=== PATIENT | female | born 1950 | race Caucasian/White ===

== ENCOUNTER 2020-11-12 16:41 | Outpatient (REF) | payer OTHER, SELFPAY ==
--- NOTE | 2020-11-12 12:20 | PAPNONF_PTH ---
PATIENT: Maria Teresa Lake LOC: [facility] U#:[id number] AGE/SX: 70/F ROOM: RE11/12/[address]: Mahesh Diop MD : [id number] BED: DIS: 11/12/2020 SPEC #: [id number] RECD: 11/13/20 12:57 STATUS: SHAILA REQ #: [id number] SUSAN: 11/12/20 12:[address]: Mahesh Diop DEPT: [facility] Cytology RECD BY: Emani Knight ENTERED: 11/13/20 12:58 SP TYPE: CISCO BANEGAS DR: Laurence Lezama Tissues: 1 - BODY FLUID CYTO(NOT S/U/N/EM)[facility] Procedures: BODY FLUID CYTO(NOT SPU/UR/NIP/ENDOM)[facility] Comments: [id number]
== END 2020-11-12 16:42 | disposition home or self-care (01) ==
LOC: LBN 16:41
PROVIDERS: PCP Internal Medicine; Visit Provider Otolaryngology
DX: R22.1 Localized swelling, mass and lump, neck (principal); R89.6 Abnormal cytological findings in specimens from other organs, systems and tissues
CPT/HCPCS: 88104

== ENCOUNTER 2022-12-22 09:18 | Outpatient (CLI) | payer MEDICARE, SELFPAY ==
--- NOTE | 2022-12-22 09:00 | DI.RAD_ITS ---
Exam(s) XR SHOULDER LT COMPLETE 2+V EXAM: XR SHOULDER LT COMPLETE 2+V CLINICAL HISTORY: LEFT SHOULDER PAIN. TECHNIQUE: 2D digital imaging was performed. COMPARISON: No exams were available for comparison FINDINGS: Two views No evidence fracture or dislocation. No soft tissue calcifications. Mild diminution subacromial spa ce. There is no significant narrowing of the glenohumeral joint space. No osteophytes. Mild degene rative changes in the AC joint. IMPRESSION: Mild degenerative changes. DATA REPOSITORY: RADIATION DOSE DELIVERED:
== END 2022-12-22 09:19 | disposition home or self-care (01) ==
LOC: DIORS 09:18
PROVIDERS: PCP Internal Medicine; Referring Provider Internal Medicine; Visit Provider Student in an Organized Health Care Education/Training Program
DX: M25.512 Pain in left shoulder (principal); S46.212A Strain of muscle, fascia and tendon of other parts of biceps, left arm, initial encounter; X58.XXXA Exposure to other specified factors, initial encounter; M75.102 Unspecified rotator cuff tear or rupture of left shoulder, not specified as traumatic; M12.812 Other specific arthropathies, not elsewhere classified, left shoulder
CPT/HCPCS: 20610; 99203; 73030; J1030

== ENCOUNTER 2023-02-18 09:06 | Outpatient (CLI) | payer MEDICARE, SELFPAY ==
--- NOTE | 2023-02-18 08:38 | DI.RAD_ITS ---
Exam(s) XR HIP RT COMPLETE AP PELVIS EXAM: XR HIP RT COMPLETE AP PELVIS CLINICAL HISTORY: R THR planning. TECHNIQUE: 2D digital imaging was performed. Two views COMPARISON: CR XR HIP RT MIN 2V AND PELVIS from 02/25/2022 FINDINGS: BONES: No acute fracture is present. No bony destructive lesion is seen. JOINTS: No dislocation present. Severe degenerative changes of the right hip with obliteration of t he joint space and periarticular spurring. Left hip joint space is maintained. SI joints show mild degenerative changes. SOFT TISSUE: Normal. IMPRESSION: Degenerative changes of the right hip. DATA REPOSITORY: RADIATION DOSE DELIVERED:
== END 2023-02-18 09:07 | disposition home or self-care (01) ==
LOC: DIORS 09:06
PROVIDERS: PCP Internal Medicine; Referring Provider Internal Medicine; Visit Provider Student in an Organized Health Care Education/Training Program
DX: M16.11 Unilateral primary osteoarthritis, right hip (principal); M75.102 Unspecified rotator cuff tear or rupture of left shoulder, not specified as traumatic; S46.212A Strain of muscle, fascia and tendon of other parts of biceps, left arm, initial encounter; X58.XXXA Exposure to other specified factors, initial encounter
CPT/HCPCS: 99214; 73502

== ENCOUNTER 2023-02-18 18:35 | Outpatient (CLI) | payer MEDICARE, SELFPAY ==
[2023-02-18 10:19] LABS: HCT 43.2 % (36.0-46.0); HGB 13.8 g/dL (11.2-15.7); MCH 27.3 pg (27.0-33.0); MCHC 31.9 % (32.0-36.0); MCV 85 fL (80-95); Platelet Count 232 10^3/uL (130-400); RBC 5.06 10^6/uL (3.93-5.22); RDW 14.6 % (11.7-14.6); RDW-SD 46.2 fL; WBC 8.74 10^3/uL (4.4-10.8)
[2023-02-18 10:38] LABS: Anion Gap 10.1 mmol/L (3-11); BUN 8 mg/dL (7-18); CO2 27.9 mmol/L (21.0-32.0); CREATININE 0.6 mg/dL (0.55-1.02); Calcium 9.9 mg/dL (8.5-10.1); Chloride 102 mmol/L (98-107); Glucose 101 mg/dL (74-106); Potassium 3.7 mmol/L (3.5-5.1); Sodium 140 mmol/L (136-145)
== END 2023-02-18 18:36 | disposition home or self-care (01) ==
LOC: LBO 18:36
PROVIDERS: PCP Internal Medicine; Visit Provider Student in an Organized Health Care Education/Training Program
DX: Z01.818 Encounter for other preprocedural examination
CPT/HCPCS: 36415; 80048; 85027

== ENCOUNTER → 2023-02-23 10:12 | Outpatient (BNVA) | payer MEDICARE, SELFPAY | PROVIDERS: PCP Internal Medicine; Referring Provider Internal Medicine; Visit Provider Student in an Organized Health Care Education/Training Program | DX: M75.102 Unspecified rotator cuff tear or rupture of left shoulder, not specified as traumatic (principal); M12.812 Other specific arthropathies, not elsewhere classified, left shoulder; S46.212D Strain of muscle, fascia and tendon of other parts of biceps, left arm, subsequent encounter; X58.XXXD Exposure to other specified factors, subsequent encounter | CPT/HCPCS: 99214 ==

== ENCOUNTER → 2023-03-02 02:30 | Outpatient (CLI) | payer MEDICARE, SELFPAY ==
--- NOTE | 2023-03-02 08:30 | DI.CT_ITS ---
Exam(s) CT UPPER EXTREMITY LT WO EXAM: CT UPPER EXTREMITY LT WO CLINICAL HISTORY: SURGICAL PLANNING M75.102 ROTATOR CUFF TEAR M12.812 S46.212A STRAIN. TECHNIQUE: Imaging Protocol: Axial computed tomography images with coronal and sagittal reformatted images were created and reviewed. COMPARISON: CR XR SHOULDER LT COMPLETE 2+V from 12/22/2022 FINDINGS: Bones: No evidence of fracture. Degenerative spurring and subchondral cysts in the humeral head. Ch anges in the spine. Joints: mild spurring at the AC joint. Spurring at the tip of the acromion. Humeral head is superi josue positioned. Findings consistent with chronic rotator cuff tear. Soft Tissues: Moderate atrophy of the supraspinatus muscle. The visualized portions of the lungs are clear. IMPRESSION: Chronic supraspinatus tear with moderate muscle atrophy. Degenerative changes at the AC joint and an d undersurface of acromion. RADIATION DOSE DELIVERED: Total DLP Total DLP DATA REPOSITORY: All CT scans at this facility are submitted to the National Radiology Data Registry (NRDR) Dose Index Registry (DIR) with the [employer] (ACR). RADIATION OPTIMIZATION: All CT scans at this facility use at least one of these dose optimization te chniques: automated exposure control; mA and/or kV adjustment per patient size (includes targeted exa ms where dose is matched to clinical indication); or iterative reconstruction.
== END ==
PROVIDERS: PCP Internal Medicine; Visit Provider Student in an Organized Health Care Education/Training Program
DX: M12.812 Other specific arthropathies, not elsewhere classified, left shoulder (principal); M75.122 Complete rotator cuff tear or rupture of left shoulder, not specified as traumatic; S46.212D Strain of muscle, fascia and tendon of other parts of biceps, left arm, subsequent encounter; X58.XXXD Exposure to other specified factors, subsequent encounter
CPT/HCPCS: 73200

== ENCOUNTER 2023-03-08 05:37 | Day surgery (SDC) | payer MEDICARE, SELFPAY ==
[2023-03-08] VITALS (11 sets, daily range): BP systolic 94–182; BP diastolic 46–71; PULSE 57–69; RESP 13–20; TEMP 36.1–36.8; O2SAT 94–98; BMI 36.3
[2023-03-08] MEDS: Lactated Ringers 1,000 ML 80 ML IV (06:55)
--- NOTE | 2023-03-08 06:56 | W.ANESPRE ---
General Info Date of Service Date Performed: 03/08/23 Height: 5 ft 1.5 in Weight: 88.7 kg Body Mass Index (BMI): 36.3 Surgical Procedure: Operation Date: 03/08/23 07:50 Proposed Procedure Side Surgeon p Hip Total Hip Anterior, Corail Low Right Jensen Orellana MD Meds Allergies and Home Medications Allergies Allergy/AdvReac Type Severity Reaction Status Date / Time Influenza Virus Vaccines Allergy Verified 03/07/23 13:36 rofecoxib [From Vioxx] Allergy Verified 03/07/23 13:36 yellow dye Allergy Verified 03/07/23 13:37 Home Medication Medication Instructions Recorded amlodipine 5 mg tablet 5 mg PO DAILY 11/05/20 omeprazole 40 mg capsule,delayed 40 mg PO DAILY 02/18/23 release acetaminophen 500 mg tablet 1,000 mg (2 x 500 mg) PO Q8H PRN 03/08/23 pain #90 tabs aspirin 81 mg tablet,delayed 81 mg PO BID 30 days #60 tabs 03/08/23 release celecoxib 200 mg capsule (Celebrex) 200 mg PO BID PRN #60 caps 03/08/23 dexamethasone 4 mg tablet 4 mg PO DAILY #2 tabs 03/08/23 docusate sodium 100 mg capsule 100 mg PO BID #30 caps 03/08/23 (Colace) oxycodone 5 mg tablet 5 mg PO Q6H PRN #12 tabs 03/08/23 Current Visit Medications: Current Medications Generic Name Dose Route Start Last Admin Trade Name Freq PRN Reason Stop Dose Admin Acetaminophen 1,000 mg 03/08/23 06:00 Acetaminophen 500 Mg Tab PO 04/07/23 05:59 PREOP LETA Tranexamic Acid 1,000 mg/ 60 mls @ 360 mls/hr 03/08/23 06:00 Sodium Chloride IV 04/07/23 05:59 PREOP LETA Ringer's Solution 1,000 mls @ 80 mls/hr 03/08/23 06:00 IV 03/08/23 23:59 INFUSION LETA Cefazolin Sodium/Dextrose 2 gm in 50 mls @ 100 mls/hr 03/08/23 06:00 Ancef Duplex IVPB 03/08/23 23:59 PREOP LETA IV Miscellaneous Supplies 1 each 03/08/23 06:00 Iv Access IV 03/08/23 23:59 DIRECTED LETA Sodium Chloride 0 ml 03/08/23 06:00 Normal Saline Flush 10 Ml Syr IV 03/08/23 23:59 PRN PRN Sodium Chloride 0 ml 03/08/23 06:00 Normal Saline 10 Ml Vial IJ 03/08/23 23:59 DIRECTED PRN Sterile Water 0 ml 03/08/23 06:00 Water,Injection,Sterile 10 Ml Vial IJ 03/08/23 23:59 DIRECTED PRN PFSH Active Problems Active Problems: Problem Status Onset Code Osteoarthritis of right hip M16.11 Rupture of left proximal biceps tendon S46.212A Left rotator cuff tear arthropathy M75.102, M12.812 Mass of left side of neck R22.1 Hx of tonsillectomy Z90.89 Hx of cataract surgery Z98.49 Hx of cholecystectomy Z90.49 Hx of colonoscopy Z98.890 Elevated liver enzymes R74.8 Nonalcoholic steatohepatitis K75.81 Greater trochanteric pain syndrome M25.559 Antinuclear factor positive R76.8 Prediabetes R73.03 Persistent cough R05 Chronic low back pain M54.5, G89.29 Degeneration of cervical intervertebral disc M50.30 Inflammatory spondylopathy M46.90 Arthropathy M12.9 Genuine stress incontinence, female N39.3 Hypertensive disorder I10 Benign paroxysmal positional vertigo H81.10 Acidosis E87.2 Hyperlipidemia E78.5 Localized swelling, mass and lump, neck R22.1 Medical History Medical History (Updated 03/07/23 @ 13:33 by Jim Hwang) Spinal stenosis Tobacco Smoking/Tobacco Use Status: Former Tobacco Use Alcohol Alcohol Intake: current Alcohol intake frequency: holidays/special occasions only Substance Use Substance use: Never Substance use type: does not use Vital Signs and Lab Results Vital Signs Most Recent Vital Signs in EMR: Most Recent Vital Signs Temp Pulse Resp BP Pulse Ox 36.8 C 62 16 182/66 H 98 03/08/23 06:12 03/08/23 06:12 03/08/23 06:12 03/08/23 06:12 03/08/23 06:12 Lab Results Blood Type / Crossmatch: No Data to Display Complete Blood Count: White Blood Count 8.74 10^3/uL (4.4-10.8) 02/18/23 09:55 Red Blood Count 5.06 10^6/uL (3.93-5.22) 02/18/23 09:55 Hemoglobin 13.8 g/dL (11.2-15.7) 02/18/23 09:55 Hematocrit 43.2 % (36.0-46.0) 02/18/23 09:55 Platelet Count 232 10^3/uL (130-400) 02/18/23 09:55 Complete Metabolic Panel: Sodium 140 mmol/L (136-145) 02/18/23 09:55 Potassium 3.7 mmol/L (3.5-5.1) 02/18/23 09:55 Chloride 102 mmol/L (98-107) 02/18/23 09:55 Carbon Dioxide 27.9 mmol/L (21.0-32.0) 02/18/23 09:55 BUN 8 mg/dL (7-18) 02/18/23 09:55 Creatinine 0.6 mg/dL (0.55-1.02) 02/18/23 09:55 Est GFR (CKD-EPI 2020) 95.90 (mL/min/1.73m2) 02/18/23 09:55 Calcium 9.9 mg/dL (8.5-10.1) 02/18/23 09:55 Glucose 101 mg/dL (74-106) 02/18/23 09:55 Liver Function Panel: No Data to Display Coagulation Panel: No Data to Display Cardiac Panel: No Data to Display Arterial Blood Gas: No Data to Display Venous Blood Gas: No Data to Display Pancreas Panel: No Data to Display Thyroid Panel: No Data to Display Infectious Disease: No Data to Display Blood Cultures: No Data to Display Toxicology Panel: No Data to Display Imaging and Studies Imaging and Studies Study information below may be from another EMR and interpreted by another provider. Please see original notes in EMR for more complete details. Echocardiogram Summary: 05/25/18 Echo at [facility], trivial mitral regurgitation, otherwise normal per Jean Pierre BELL review of records. Anesthesia Assessment and Plan Anesthesia History Personal History: No History of Anesthesia Complications Family History: No Family History of Anesthesia Complications and Family History Unknown Exercise Tolerance Exercise Tolerance: Metabolic Equivalents<4 Pertinent Negatives Pertinent Negatives: No Symptoms of GERD (omeprazole effective, took this am), No Major Cardiovascular Symptoms or Complaints, No Major Pulmonary Symptoms or Complaints and No History of CVA/TIA Cardiac & Pulmonary Exam Cardiac Exam: Normal S1/S2 Heart Sounds and Heart Murmur Present Pulmonary Exam: Clear Bilateral Breath Sounds Implantable Cardiac Device Does patient have a Pacemaker or an ICD?: No Airway Exam Known Difficult Airway: No Mallampati Class: 4 Mouth Opening: Normal (> 3cm) Thyromental Distance: Less than 3 cm Neck Range of Motion: Full ROM Neck Circumference: Normal Teeth Condition: Normal Dentition (Prominent incisors) ASA Classification ASA Score: ASA 3 Emergency Case?: No NPO Status NPO Status: NPO Clears >2 hours, Solids >8 hours Anesthesia Plan Resuscitation Status: Full Code Anesthesia Technique: Spinal Anesthesia Airway Planned: Natural Airway Monitors Used: Standard Monitors Preoperative Comments:: GA backup
--- NOTE | 2023-03-08 07:00 | DI.RAD_ITS ---
Exam(s) XR HIP RT IN OR EXAM: XR HIP RT IN OR CLINICAL HISTORY: right hip osteoarthritis. TECHNIQUE: 2D digital imaging was performed. COMPARISON: No exams were available for comparison FINDINGS: Possibly provided during hip arthroplasty. See procedure report for details. Total fluoroscopy time 36 seconds IMPRESSION: Radiation exposure index/cumulative dose: aleena Sneed= 4.5610 mGy DATA REPOSITORY: RADIATION DOSE DELIVERED:
[2023-03-08] MEDS: Acetaminophen 500 MG TAB 1000 MG PO (07:04)
[2023-03-08] MEDS: ceFAZolin 2 GM/50 ML BAG IVPB (07:28)
--- NOTE | 2023-03-08 07:32 | W.PM.DS.N ---
Date of service: 03/08/23 Time of Service: 07:37 DS: Diagnosis Discharge Diagnosis (1) Osteoarthritis of right hip: Status: Resolved Discharge Plan Disposition Patient Disposition: Home Condition: Good Discharge Details Reason For Visit: Right hip DJD Attending Provider: Jensen Orellana Primary Care Provider: Laurence Lezama Home Meds and New Rx's Prescriptions: New acetaminophen 500 mg tablet 1,000 mg PO Q8H PRN Qty: 90 0RF Rx Instructions: Take two tablets up to every 8 hours as needed for pain aspirin 81 mg tablet,delayed release (DR/EC) 81 mg PO BID 30 Days Qty: 60 0RF celecoxib [Celebrex] 200 mg capsule 200 mg PO BID PRNQty: 60 0RF Rx Instructions: Take one tablet twice daily for pain and inflammation docusate sodium [Colace] 100 mg capsule 100 mg PO BID Qty: 30 0RF dexamethasone 4 mg tablet 4 mg PO DAILY Qty: 2 0RF Rx Instructions: Take one tablet once daily for two days oxycodone 5 mg tablet 5 mg PO Q6H PRNQty: 12 0RF Rx Instructions: Take one tablet up to every 6 hours as needed for severe postoperative pain Continued amlodipine 5 mg tablet 5 mg PO DAILY omeprazole 40 mg capsule,delayed release(DR/EC) 40 mg PO DAILY Discontinued ibuprofen 600 mg tablet 600 mg PO TID PRN tramadol 50 mg tablet 50 mg PO .5 times per day PRN Discharge Instructions Additional Instructions: Total Hip Discharge Instructions Activity: The most important activity is to walk. You should try to take short walks a few times a day. You have no restrictions on movement or positioning, but do not try to force what you do. You will find some stiffness and weakness with hip flexion (lifting your knee). Do not try to strengthen this too early, continue to practice walking and stairs and this will come. - Outpatient physical therapy can be helpful to help return you to a normal gait and improve your flexibility and strength. This can start around 2 weeks. For some patients, it?s not necessary. Usually this is determined at the time of discharge or at the first post-operative visit. - You should wear the ANASTACIO hose on both legs for 2 weeks. Dressing: Keep the surgical dressing in place for at least one week. After the first week it may be removed and replace with light gauze and tape or nothing. It may get wet after 3 days but avoid soaking the dressing. If it gets wet, just lightly pat dry. It is important to always keep some gauze between skin folds, especially when you are sitting. Spend some time with the wound exposed when you are lying flat as the incision does wrinkle onto itself. Medications: - You should take Tylenol and an anti-inflammatory Celebrex as your primary pain control medications. If the Celebrex is too expensive or not covered, please call the office for another alternative (Advil/Ibuprofen or Naproxen/Aleve). - You have been prescribed a stronger pain medication Oxycodone for breakthrough pain, take as needed as prescribed. - You take a stomach acid reduction agent Omeprazole to help reduce stomach acid and reflux. - You have also been prescribed Decadron to help with post-operative nausea and pain. You will take this for two days starting tomorrow. - You will be taking Aspirin 81mg twice a day for DVT prevention unless instructed otherwise. - If you have constipation you should take Colace (which has been prescribed) or Miralax (which is available [id number]). It takes most people 3-4 days to have a bowel movement. Follow-up: 2 weeks March 21, 2024 @ 1045 am. If you have any acute concerns or questions, please do not hesitate to contact the office at [phone]. You may contact Dr. Orellana with any questions after hours through the hospital at [phone] or on his cell phone at [phone]. Stand Alone Forms: Anesthesia Discharge InstZehra, Tracy Torres ([facility]) Referrals: Jensen Orellana MD [ [facility] STAFF PHYSICIAN] - Equipment/Supplies: Walker Activity:: Activity as Tolerated Remove Dressings/Wound Care:: Do Not Remove Shower/Bathe:: 72 hours and Cover Diet:: As Tolerated Discharge Orders Discharge Orders: Discharge Order (Routine); Ordered 03/08/23 Ordered By: Sydni Desai Discharge Data Discharge Date/Time-TO BE ENTERED AT DEPARTURE: 03/08/23 13:00 DS: Summary Time Spent with Patient providing and/or coordinating discharge services: Less than 30 minutes Status at Discharge Functional status at discharge: uses cane/walker Overall status at discharge: patient is progressing back to baseline Mental Status: mental status grossly normal Speech and Movement: speech and movement normal Mood: congruent mood Affect: normal affect Exam Psych Mental Status: mental status grossly normal Speech and Movement: speech and movement normal Mood: congruent mood Affect: normal affect DS: Data Vitals/I&O Vitals and I&O: Vital Signs Temperature 98.2 F 03/08/23 06:12 Pulse 62 03/08/23 06:12 Pulse Rhythm Regular 03/08/23 06:12 Respiratory Rate 16 03/08/23 06:12 Respiratory Depth Normal 03/08/23 06:12 Blood Pressure 182/66 H 03/08/23 06:12 Pulse Oximetry 98 03/08/23 06:12 Oxygen Delivery Method Room Air 03/08/23 06:12 Oxygen Flow Rate 0 03/08/23 06:12 Pain Level 5 03/08/23 06:12 Intake & Output 03/07/23 03/07/23 03/08/23 11:59 23:59 11:59 Weight 195 lb 15.996 oz 195 lb 8.8 oz PFSH All Active Problems (Updated 03/08/23 @ 14:29 by José Miguel Martines RN) History of total right hip replacement (Acute 03/08/23) Rupture of left proximal biceps tendon (Acute) Left rotator cuff tear arthropathy (Acute) Mass of left side of neck (Acute) Hx of tonsillectomy (Chronic) Hx of cataract surgery (Chronic) Hx of cholecystectomy (Chronic) Hx of colonoscopy (Chronic) Elevated liver enzymes (Acute) Nonalcoholic steatohepatitis (Acute) Greater trochanteric pain syndrome (Acute) Antinuclear factor positive (Acute) Prediabetes (Acute) Persistent cough (Acute) Chronic low back pain (Acute) Degeneration of cervical intervertebral disc (Acute) Inflammatory spondylopathy (Acute) Arthropathy (Acute) Genuine stress incontinence, female (Acute) Hypertensive disorder (Chronic) Benign paroxysmal positional vertigo (Acute) Acidosis (Acute) Hyperlipidemia (Acute) Localized swelling, mass and lump, neck (Acute) Medical History (Updated 03/08/23 @ 14:29 by José Miguel Martines RN) Spinal stenosis Family History Brother Kidney disease Father Stroke Mother Heart disease Social History Smoking/Tobacco Use Status: Former Tobacco Use Quit Date: 04/11/82 Pack-years: 19 Smoking risk assessment performed?: Yes Alcohol Intake: current Alcohol Intake frequency: holidays/special occasions only Drug use: Never Substance use type: does not use Housing: house Education Level: high school Pets and animals: Yes Current gender identity: female Do you feel safe at home: Yes Do you feel safe in your relationship?: Yes Time Spent with Patient Time Spent with Patient: <45 minutes Time was spent: obtaining and/or reviewing separately otained hiistory, counseling the patient and care coordination
[2023-03-08] MEDS: HYDROmorphone 2 MG/ML SYR IVP ×3 (09:23→10:10)
[2023-03-08] MEDS: LORazepam 2 MG/ML VIAL 0.5 MG IVP (09:28)
--- NOTE | 2023-03-08 10:29 | W.PM.OP ---
Date of service: 03/08/23 Time of Service: 07:40 Operative Note Operative Note DATE OF PROCEDURE: 03/08/23 PRE-OP DIAGNOSIS: Right Hip Osteoarthritis POST-OP DIAGNOSIS: same PROCEDURE: Right Anterior Total Hip Arthroplasty with Intraoperative Navigation SURGEON: Jensen Orellana SPECIAL EDUCATION DIRECTOR: Sydni Desai ANESTHESIA TYPE: Spinal Refer to Anesthesia Record ESTIMATED BLOOD LOSS: 200 PATHOLOGY: none sent TOURNIQUET TIME: 0 COMPLICATIONS: None Patient was transported to: PACU Patient's condition: stable Implants: 1. Depuy [place] Acetabular Component, 52mm 2. Depuy Acetabular Liner, 57x82ql 3. Depuy Corail Short Neck Collared Femoral Stem, Size 11 4. Depuy Altrx Ceramic Femoral Head, Size 36+5mm Indications: I have seen Maria Teresa in clinic for symptoms of hip arthritis, confirmed with radiographic findings. She has exhausted nonoperative methods and was having significant limitations in daily function and desired better function and less pain. I discussed the technical details of a hip replacement. I explained the risks of the procedure to include, but not limited to, bleeding, infection, pain, stiffness, fracture, damage to nerves and vessels, damage to muscles and tendons, loosening, instability, leg length inequality, need for repeat procedure, blood clot and cardiopulmonary demise. Despite these risks, Maria Teresa elected to proceed. Findings: There was significant signs of arthritis throughout the hip. Procedure Description: Maria Teresa was greeted in the preoperative holding area where the correct side was identified and marked. The consent was reviewed with the patient and signed. The history and physical was updated. All questions were answered. She was taken back to the operating room. A spinal anesthestic was then administered. The feet were wrapped with cast padding and Coban and then placed into the boot liners and then into the boots. Care was taken to protect the skin and make sure the heels were fully down and the boots were stable. The patient was then positioned onto the HANA table. Both legs were held in a neutral position. SCDs were applied. The patient was then slid down onto a peroneal post. Prophylactic antibiotics in the form of Cefazolin were administered. 1g of Tranxemic Acid was given intravenously within 30 minutes of incision. The right leg was then prepped with Chloraprep and draped in a standard fashion. A second prep with Chloraprep was performed prior to placement of a shower-curtain type drape with Iodine impregnated skin protection. A timeout to confirm correct identity, side and site, procedure, allergies, anesthesia, and medical concerns was performed. An obliquely oriented incision was made starting lateral to the ASIS and running distal over the Tensor Fascia Carolyne (TFL) muscle belly toward the fibular head, approximately 10cm. The skin and soft tissue was dissected sharply, through Hernando?s fascia, and to the fascia of the TFL. With the fascia and superior border of the IT band identified, the fascia was incised with a new knife just above any perforators from the IT band. The TFL muscle belly was bluntly dissected away from the fascia and moved laterally. The fat between TFL and rectus was identified to ensure the dissection was not within the TFL. Blunt dissection created space between abductors and the capsule and retractor was placed over the lateral femoral neck. The fibers of the rectus femoris tendon were identified and these were freed from the anterior capsule. A second cobra retractor was placed around the medial femoral neck. The TFL was further retracted laterally to show the deep fascia. Careful dissection through this layer identified three main crossing vessels of the lateral femoral circumflex. These were cauterized in multiple locations and then cut without any noticeable bleeding. The TFL was further released bluntly from the deep fascia to expose anterior hip capsule and fat The Pedrito orthopaedic retractor was then placed beneath the TFL and against sartorius and medial soft tissues to protect and retract the soft tissues. A T-capsulotomy was then performed starting at the superior lateral acetabulum and moving distally to the intertrochanteric ridge. These capsular flaps were tagged with a No. 1 Ethibond and elevated from within. The capsular flaps were released to the shoulder of the lateral neck and to the lesser trochanter to give excellent visualization of the proximal femur. A neck osteotomy was performed using an oscillating saw based on preoperative templates. This cut started in the shoulder and of the lateral neck and exited medially. The saw was at all times directed medially to avoid injury to the greater trochanter. Gross traction was applied to the leg and the osteotomy opened. The femoral head was removed with a corkscrew, making sure to protect the TFL on its exit. Traction was released after head removal. This was measured on the back table to determine the starting reamer size. Portions of the rectus obscuring visualization were minimally elevated off the superior acetabulum. An anterior retractor was placed over the anterior wall between capsule and labrum and attached to the Gripper retraction system. The femur was rotated to 90 degrees and medial capsule was fully released until the lesser trochanter was palpable and visible; the femur was returned to 30 degrees. A posterior retractor was placed similarly between capsule and labrum. This provided excellent visualization. The contents of the cotyloid fossa were removed with electrocautery and the labrum was removed with a knife. There was a notable floor osteophyte. There was significant chondromalacia of the superior acetabulum. Acetabular reaming began with a 46mm reamer. This first reaming was directed anterior to posterior and medial to get down to the true floor. This was inspected and reamed until the true floor was reached. The anterior retractor was then released and entry and exit was provided by traction on the capsular flaps. I then reamed sequentially up to a 52mm reamer where good fit was obtained. The larger reamers were oriented based on anatomical reference of the anterior and lateral burton to ensure proper abduction and anteversion. Positioning and size was confirmed with the fluoroscopy. A 52mm Depuy [place] acetabular component was selected. The acetabulum was reamed around the periphery with the selected acetabular size to prevent a rim fit. The deep tissues were irrigated. The acetabular component was then impacted in a position of about 40-45 degrees of abduction and 15-20 degrees of anteversion, using the patient?s anatomy as the ultimate landmark. Fluoroscopy was used to confirm this. There was excellent director credit risk of the acetabular component and the inserting handle was removed. A primary acetabular screw was placed into the ilium by drilling through one of the holes in the acetabular component. This was measured and an approrpriately sized screw was placed with excellent purchase. It was checked not to be proud. The acetabular liner, Depuy [id number] polyethylene liner, was inserted and lined up with the tines of the acetabular component. There was no soft tissue interposition. The liner was then impacted into position and confirmed to be well-seated. A portion of the lauren-articular cocktail was then injected around the acetabulum into the capsule and periosteum. This cocktail consisted of 123mg of Ropivacaine, 0.25mg of Epinephrine, 0.04mg of Clonidine, and 15mg of Ketorolac, diluted to 50cc. The leg was rotated to 120 degrees. Any remaining medial capsule was released until the lesser trochanter was easily palpable. A retractor was placed medially. The lateral capsule was further released into the shoulder to allow access to the greater trochanter. A Quiñones retractor was placed over the greater trochanter which allowed the trochanter to flip in front of the capsule for excellent exposure. The leg was brought down into maximal extension and 20 degrees of adduction while ensuring there was no impingement on the acetabulum. Any remnant capsule within the trochanter was released. Piriformis and obturator externis were identified and protected. There was excellent access to the proximal femur. The lateral neck remnant was removed with a rongeur. A blunt canal probe was used to identify the canal and trajectory for later broaching. A box osteotome initiated the broach course. A small curved rasp and a curved curette were used to work laterally. Broaching then began with a size 8 Corail broach. This was inserted manually around the trochanter and into the canal before mallet blows. The broach was seated to a few millimeters below the cut level based on the neck cut and the preoperative template. Sequential broaching was continued with the Hangar Sevense pneumatic broaching device until a tight fit was obtained with good rotational control of the femur. A trial short neck was inserted along with a +5 trial head. The leg was brought out of extension and adduction and then reduced with traction and internal rotation. The leg was stable anteriorly in a position of 30 degrees of extension and 90 degrees of external rotation. Fluoroscopy was used to ensure there was no fracture and the stem was seated well. Leg lengths were checked with an AP pelvis and pelvic reference points. AVA.ai navigation system was used to confirm appropriate positioning and leg length and offset. Once content with the desired offset and leg lengths, the leg was brought back into extension, external rotation and adduction. The periosteum and surrounding tissue was injected with remaining portion of the lauren-articular cocktail. The proximal femur was irrigated as well as the deep tissues. The Depuy Corail short neck collared stem, size 11, was then manually inserted into the proximal femur making sure to control rotation. It was then malleted into position with light blows, giving breaks to allow bone expansion and decrease risk of fracture. The selected Depuy Altrx Ceramic Head, size 36+5mm, was then placed onto the clean and dry trunnion and secured with impaction onto the tapered fit. The leg was brought back out of extension and adduction and reduced with traction and internal rotation. Stability was confirmed with no shuck at 90 degrees of external rotation and 30 degrees of extension. No impingement through range of motion arc. Final x-ray images were obtained with fluoroscopy to confirm adequate positioning and no intraoperative fracture. The deep tissues were thoroughly irrigated with Surgiphor, betadine solution. This was allowed to sit in the wound for 3 minutes before being thoroughly irrigated out with normal saline. The capsule was then reapproximated with the previously placed Ethibond sutures. The TFL fascia was finally closed with a No. 2 Stratafix, barbed suture. Deep tissues were then reapproximated with 0 Vicryl and a running 2-0 Vicryl. The skin was closed with a running 4-0 Monocryl in a subcuticular fashion. This was reinforced with skin glue. A Mepilex silver dressing was applied. At the end of the case, all counts were correct. Maria Teresa was transferred to the hospital bed without difficulty and suffering no apparent complication. She has a good prognosis. Physical therapy will start today and without restrictions, weight-bearing as tolerated. Aspirin 81mg BID will be used for DVT prophylaxis.
[2023-03-08] MEDS: oxyCODONE 5 MG TAB PO (11:18)
--- NOTE | 2023-03-08 11:40 | IN_ITS ---
PT Notes Visit Reasons: Right hip DJD Physical Therapy Day Surgery Initial Evaluation Date: 03/08/2023 Referring Doctor: Jensen Orellana MD PT Orders: PT CONSULT: S/P ortho Surgery Precautions: WBAT on the L LE with AD. Patient Profile/Admitting Diagnosis: Maria Teresa is a 72-year-old female with degenerative joint disease of the left hip and is status post left total hip arthroplasty on postoperative day 0. PMHX: All Active Problems (Updated 02/18/23 @ 08:24 by RAY Santos) Osteoarthritis of right hip (Acute) Rupture of left proximal biceps tendon (Acute) Left rotator cuff tear arthropathy (Acute) Mass of left side of neck (Acute) Hx of tonsillectomy (Chronic) Hx of cataract surgery (Chronic) Hx of cholecystectomy (Chronic) Hx of colonoscopy (Chronic) Elevated liver enzymes (Acute) Nonalcoholic steatohepatitis (Acute) Greater trochanteric pain syndrome (Acute) Antinuclear factor positive (Acute) Prediabetes (Acute) Persistent cough (Acute) Chronic low back pain (Acute) Degeneration of cervical intervertebral disc (Acute) Inflammatory spondylopathy (Acute) Arthropathy (Acute) Genuine stress incontinence, female (Acute) Hypertensive disorder (Chronic) Benign paroxysmal positional vertigo (Acute) Acidosis (Acute) Hyperlipidemia (Acute) Localized swelling, mass and lump, neck (Acute) Active Problem List Mass of left side of neck (Acute) Hx of tonsillectomy (Chronic) Hx of cataract surgery (Chronic) Hx of cholecystectomy (Chronic) Hx of colonoscopy (Chronic) Elevated liver enzymes (Acute) Nonalcoholic steatohepatitis (Acute) Greater trochanteric pain syndrome (Acute) Antinuclear factor positive (Acute) Prediabetes (Acute) Persistent cough (Acute) Chronic low back pain (Acute) Degeneration of cervical intervertebral disc (Acute) Inflammatory spondylopathy (Acute) Arthropathy (Acute) Genuine stress incontinence, female (Acute) Hypertensive disorder (Chronic) Benign paroxysmal positional vertigo (Acute) Acidosis (Acute) Hyperlipidemia (Acute) Localized swelling, mass and lump, neck (Acute) Social History/Home Situation: Lives with in a private home with a half step to get in. Independent with all aspects of ADLs prior to surgery. Equipment Owned/DME: [facility] Subjective: Reports 3-4/10 pain in the left hip at rest and with movement. Needed to use bathroom right away due to temporary urinary incontinence. Objective: General Observation: Resting in bed. Mepilex Ag over surgical incision. TEDS to be legs. High BMI. Mental Status: Alert and oriented x 4 Pain: As above ROM Right Lower Extremity: Hip flexion WFL. Hip abduction WFL. Knee flexion WFL. Ankle dorsiflexion WFL. Ankle plantarflexion WFL. Left Lower Extremity: Hip flexion WFL. Hip abduction WFL. Knee flexion WFL. Ankle dorsiflexion WFL. Ankle plantarflexion WFL. Strength: Right Lower Extremity: Hip flexors 5/5. Hip abductors 5/5. Knee flexors 5/5. Knee extensors 5/5. Ankle dorsiflexors 5/5. Ankle plantarflexors 5/5. Left Lower Extremity:Hip flexors 4-/5. Hip abductors 4-/5. Knee flexors 4/5. Knee extensors 4-/5. Ankle dorsiflexors 5/5. Ankle plantarflexors 5/5. Sensation: Intact as to pain and light pressure in BLE Bed Mobility/Transfers: Minimal verbal cueing provided for safe and correct technique for movement sequence and AD use Supine to sit standby assist Sit to stand contact-guard assist with FWW Stand to sit standby assist Bed to chair standby assist Gait: Facilitated safe and correct performance of level surface ambulation covering a distance of 150 feet using front wheeled walker with standby assist requiring only minimal verbal cueing for walker management, correct and safe gait pattern, and posture. Balance: Static Sitting: Normal Dynamic Sitting: Normal Static Standing: Fair Dynamic Standing: Fair Special Tests: Mobility Limitations Standardized Measure [facility] AM-PAC 6 clicks Basic Mobility Inpatient Short Form: Raw Score: 23 CMS Score: 11% deficit Informed Consent/Education: Patient instructed in purpose of PT consult. Packet containing JEREMIAS exercise protocol has been given to patient. Education and training on initial set of exercises that can be done at home have been completed with patient. Trained patient with correct performance of exercises below to maximize motor control, joint flexibility, soft tissue extensibility of the L hip musculature to facilitate return to independent functional mobility performance. Access Code: [email or web address] URL: [email or web address] Date: 03/08/2023 Prepared by: Ju Tinoco Exercises - Gluteal Sets - 1 x daily - 7 x weekly - 1 sets - 10 reps - 5 hold - Supine Heel Slide - 1 x daily - 7 x weekly - 1 sets - 10 reps - 5 hold - Supine Ankle Pumps - 1 x daily - 7 x weekly - 1 sets - 10 reps - 5 hold - Seated March - 1 x daily - 7 x weekly - 1 sets - 10 reps - 5 hold - Seated Long Arc Quad - 1 x daily - 7 x weekly - 1 sets - 10 reps - 5 hold Assessment: Patient requires the use of a front wheeled walker to maximize independence and reduce fall risk. Patient presents with clinical signs and symptoms consistent with current/admitting diagnoses that have resulted to mobility limitations, gait instability, generalized weakness, and impairment of motor control as demonstrated by the following impairment level findings: 1. Decreased strength to left hip major muscle groups 2. Impaired standing balance Impairments are contributing to the following functional limitations: 1. Inability to safely ambulate without assistive device 2. Increase completion time for mobility ADL performance 3. Increased fall risk Patient is assessed as a 68362 moderate complexity based on the following: History: 72-year-old female with impairment level findings, functional limitations, and past medical history as indicated above Examination: Demonstrable impairment in strength, balance, and mobility level with underlying impairments and functional limitations as documented above Presentation: Evolving Decision Makin moderate complexity Goals: N/A. PT evaluation and 1-2 treatment sessions only for functional mobility training using recommended AD and for HEP instruction. Plan of Care/Treatment Plan: N/A. PT evaluation and 1-2 treatment session only for functional mobility training using recommended AD and for HEP instruction. DISCHARGE RECOMMENDATIONS: Home when medically cleared by orthopedic surgeon. Recommend outpatient PT services in order to optimize functional mobility outcomes and facilitate return to independent community ambulation without an assistive device. TREATMENT CODE/TIME: 26768 x 20 minutes for 1 unit, 37162 x 17 minutes for 1 unit beginning at 11:40 AM. Thank you for the opportunity to participate in the care of this patient. Ju Tinoco PT, DPT, CLT [facility] [place], [place]
--- NOTE | 2023-03-08 13:06 | W.ANESPOSTOP ---
Postoperative Evaluation Date, Time and Location Date Performed: 03/08/23 Time Performed: 12:39 Patient Location: Day Surgery Unit Vital Signs Most Recent Imported Vital Signs: Most Recent Vital Signs Temp Pulse Resp BP Pulse Ox 36.4 C L 62 16 137/64 95 03/08/23 11:24 03/08/23 11:24 03/08/23 11:24 03/08/23 11:24 03/08/23 11:24 Pain Score Most Recent Pain Score: Most Recent Pain Score Pain Level 4 03/08/23 11:24 Assessment Mental Status: Awake (Alert & Oriented to Patient Baseline) Airway and Respiratory Function: Patent airway with normal (patient baseline) respiratory exam Cardiovascular Function: Hemodynamically Stable Hydration Status: Adequately Hydrated Nausea & Vomiting: No Nausea or Vomiting Pain: Pain is tolerable per patient Peripheral Nerve Block: Patient did not receive a nerve block Postoperative Comments:: Crackers and juiice for sl. nausea following pain pill
== END 2023-03-08 13:00 | disposition home or self-care (01) ==
PROVIDERS: PCP Internal Medicine; Visit Provider Student in an Organized Health Care Education/Training Program
PROC: (CPT 27130; principal; 2023-03-08 07:30)
DX: M16.11 Unilateral primary osteoarthritis, right hip (principal); R73.03 Prediabetes; I10 Essential (primary) hypertension; E78.5 Hyperlipidemia, unspecified
CPT/HCPCS: 20985; 27130; C1776; 97162; 97530; 73501; J0690; J1100; J1170; J2060; J2250; J2405; J2704

== ENCOUNTER 2023-03-25 10:45 | Outpatient (CLI) | payer MEDICARE, SELFPAY ==
--- NOTE | 2023-03-25 09:45 | DI.RAD_ITS ---
Exam(s) XR HIP RT COMPLETE AP PELVIS EXAM: XR HIP RT COMPLETE AP PELVIS CLINICAL HISTORY: 1st post op s/p R JEREMIAS. TECHNIQUE: 2D digital imaging was performed. Two views COMPARISON: CR XR HIP RT COMPLETE AP PELVIS from 02/18/2023 XA XR HIP RT IN OR from 03/08/2023 FINDINGS: BONES: A right hip prosthesis has been placed. Alignment appears satisfactory. No bony destructive lesion is seen. JOINTS: No dislocation present. Mild degenerative changes the left hip. SOFT TISSUE: Normal. IMPRESSION: Satisfactory alignment of hip prosthesis. DATA REPOSITORY: RADIATION DOSE DELIVERED:
== END 2023-03-25 10:46 | disposition home or self-care (01) ==
LOC: DIORS 10:45
PROVIDERS: PCP Internal Medicine; Referring Provider Internal Medicine; Visit Provider Student in an Organized Health Care Education/Training Program
DX: Z96.641 Presence of right artificial hip joint (principal); Z47.1 Aftercare following joint replacement surgery
CPT/HCPCS: 73502

== ENCOUNTER → 2023-04-13 10:29 | Outpatient (BNVA) | payer MEDICARE, SELFPAY | PROVIDERS: PCP Internal Medicine; Referring Provider Internal Medicine; Visit Provider Student in an Organized Health Care Education/Training Program | DX: M75.102 Unspecified rotator cuff tear or rupture of left shoulder, not specified as traumatic (principal); M12.812 Other specific arthropathies, not elsewhere classified, left shoulder; S46.212A Strain of muscle, fascia and tendon of other parts of biceps, left arm, initial encounter; X58.XXXA Exposure to other specified factors, initial encounter | CPT/HCPCS: 99214 ==

== ENCOUNTER → 2023-04-22 08:31 | Outpatient (BNVA) | payer MEDICARE, SELFPAY | PROVIDERS: PCP Internal Medicine; Referring Provider Internal Medicine | DX: Z47.1 Aftercare following joint replacement surgery (principal); Z96.641 Presence of right artificial hip joint ==

== ENCOUNTER 2023-05-25 05:55 | Day surgery (SDC) | payer MEDICARE, SELFPAY ==
[2023-05-25] VITALS (11 sets, daily range): BP systolic 124–199; BP diastolic 58–87; PULSE 56–79; RESP 15–21; TEMP 36.4–37; O2SAT 95–100; BMI 38.0
--- NOTE | 2023-05-25 06:38 | W.ANESPRE ---
General Info Date of Service Date Performed: 05/25/23 Height: 5 ft 1 in Weight: 91.2 kg Body Mass Index (BMI): 38.0 Surgical Procedure: Operation Date: 05/25/23 07:40 Proposed Procedure Side Surgeon p Shoulder Reverse Total Arthroplasty Left Alexsander Odonnell MD Meds Allergies and Home Medications Allergies Allergy/AdvReac Type Severity Reaction Status Date / Time rofecoxib [From Vioxx] Allergy Other (See Verified 05/25/23 06:15 Comment) yellow dye Allergy Other (See Verified 05/25/23 06:15 Comment) Home Medication Medication Instructions Recorded amlodipine 5 mg tablet 5 mg PO DAILY 11/05/20 omeprazole 40 mg capsule,delayed 40 mg PO DAILY 02/18/23 release acetaminophen 500 mg tablet 1,000 mg (2 x 500 mg) PO Q8H PRN 03/08/23 pain #90 tabs docusate sodium 100 mg capsule 100 mg PO BID #30 caps 03/08/23 (Colace) tramadol 50 mg tablet 50 mg PO Q6H PRN 04/13/23 aspirin 81 mg tablet,delayed 81 mg PO DAILY Prevent blood clot 05/25/23 release 7 days #7 tabs ibuprofen 400 mg tablet (IBU) 400 mg PO TID-QID PRN 05/25/23 naproxen 250 mg tablet 250 - 500 mg (1 - 2 x 250 mg) PO 05/25/23 BID PRN Moderate pain #40 tabs tramadol 50 mg tablet 50 mg PO TID PRN pain, moderate 05/25/23 #10 tabs Current Visit Medications: Current Medications Generic Name Dose Route Start Last Admin Trade Name Popq PRN Reason Stop Dose Admin Ringer's Solution 1,000 mls @ 30 mls/hr 05/25/23 06:00 IV 05/25/23 23:59 INFUSION LETA Cefazolin Sodium 3,000 mg/ 100 mls @ 200 mls/hr 05/25/23 06:00 Sodium Chloride IVPB 05/25/23 23:59 PREOP LETA IV Miscellaneous Supplies 1 each 05/25/23 06:00 Iv Access IV 05/25/23 23:59 DIRECTED LETA Sodium Chloride 0 ml 05/25/23 06:00 Normal Saline Flush 10 Ml Syr IV 05/25/23 23:59 PRN PRN Sodium Chloride 0 ml 05/25/23 06:00 Normal Saline 10 Ml Vial IJ 05/25/23 23:59 DIRECTED PRN Sterile Water 0 ml 05/25/23 06:00 Water,Injection,Sterile 10 Ml Vial IJ 05/25/23 23:59 DIRECTED PRN PFSH Active Problems Active Problems: Problem Status Onset Code History of total right hip replacement 03/08/23 Z96.641 Rupture of left proximal biceps tendon S46.212A Left rotator cuff tear arthropathy M75.102, M12.812 Mass of left side of neck R22.1 Hx of tonsillectomy Z90.89 Hx of cataract surgery Z98.49 Hx of cholecystectomy Z90.49 Hx of colonoscopy Z98.890 Elevated liver enzymes R74.8 Nonalcoholic steatohepatitis K75.81 Greater trochanteric pain syndrome M25.559 Antinuclear factor positive R76.8 Prediabetes R73.03 Persistent cough R05 Chronic low back pain M54.5, G89.29 Degeneration of cervical intervertebral disc M50.30 Inflammatory spondylopathy M46.90 Arthropathy M12.9 Genuine stress incontinence, female N39.3 Hypertensive disorder I10 Benign paroxysmal positional vertigo H81.10 Acidosis E87.2 Hyperlipidemia E78.5 Localized swelling, mass and lump, neck R22.1 Medical History Medical History Spinal stenosis Tobacco Smoking/Tobacco Use Status: Former Tobacco Use Alcohol Alcohol Intake: current Alcohol intake frequency: holidays/special occasions only Substance Use Substance use: Never Substance use type: does not use Vital Signs and Lab Results Vital Signs Most Recent Vital Signs in EMR: Most Recent Vital Signs Temp Pulse Resp BP Pulse Ox 36.4 C L 63 16 173/66 H 97 05/25/23 06:21 05/25/23 06:21 05/25/23 06:21 05/25/23 06:21 05/25/23 06:21 Lab Results Blood Type / Crossmatch: No Data to Display Complete Blood Count: No Data to Display Complete Metabolic Panel: No Data to Display Liver Function Panel: No Data to Display Coagulation Panel: No Data to Display Cardiac Panel: No Data to Display Arterial Blood Gas: No Data to Display Venous Blood Gas: No Data to Display Pancreas Panel: No Data to Display Thyroid Panel: No Data to Display Infectious Disease: No Data to Display Blood Cultures: No Data to Display Toxicology Panel: No Data to Display Imaging and Studies Imaging and Studies Study information below may be from another EMR and interpreted by another provider. Please see original notes in EMR for more complete details. Echocardiogram Summary: 05/25/18 Echo at [facility], trivial mitral regurgitation, otherwise normal per Jean Pierre BELL review of records. Other Study Summary:: 2022 echo reviewed and results in chart Anesthesia Assessment and Plan Anesthesia History Personal History: No History of Anesthesia Complications Family History: No Family History of Anesthesia Complications Exercise Tolerance Exercise Tolerance: Metabolic Equivalents>4 Pertinent Negatives Pertinent Negatives: No Major Cardiovascular Symptoms or Complaints, No Major Pulmonary Symptoms or Complaints and No History of CVA/TIA Cardiac & Pulmonary Exam Cardiac Exam: Known Innocent Murmur Pulmonary Exam: Clear Bilateral Breath Sounds Implantable Cardiac Device Does patient have a Pacemaker or an ICD?: No Airway Exam Known Difficult Airway: No Mallampati Class: 4 Mouth Opening: Normal (> 3cm) Thyromental Distance: Less than 3 cm Neck Range of Motion: Full ROM Neck Circumference: Normal Teeth Condition: Normal Dentition (Prominent incisors) ASA Classification ASA Score: ASA 3 Emergency Case?: No NPO Status NPO Status: NPO Clears >2 hours, Solids >8 hours Anesthesia Plan Resuscitation Status: Full Code Anesthesia Technique: General Anesthesia Airway Planned: Endotracheal Tube Pain Management: Surgeon and patient request nerve block Monitors Used: Standard Monitors and SedLine
[2023-05-25] MEDS: Lactated Ringers 1,000 ML 30 ML IV (06:49)
--- NOTE | 2023-05-25 07:06 | PDOC.DSDIS_ITS ---
Date of service: 05/25/23 Time of Service: 13:00 Discharge Plan Disposition Patient Disposition: Home Condition: Stable Discharge Details Attending Provider: Alexsander Odonnell Primary Care Provider: Laurence Lezama Home Meds and New Rx's Prescriptions: New aspirin 81 mg tablet,delayed release (DR/EC) 81 mg PO DAILY 7 Days Qty: 7 0RF naproxen 250 mg tablet 250 - 500 mg PO BID PRN (Reason: Moderate pain) Qty: 40 0RF tramadol 50 mg tablet 50 mg PO TID PRN (Reason: pain, moderate) Qty: 10 0RF Continued amlodipine 5 mg tablet 5 mg PO DAILY omeprazole 40 mg capsule,delayed release(DR/EC) 40 mg PO DAILY tramadol 50 mg tablet 50 mg PO Q6H PRN acetaminophen 500 mg tablet 1,000 mg PO Q8H PRN Qty: 90 0RF Rx Instructions: Take two tablets up to every 8 hours as needed for pain docusate sodium [Colace] 100 mg capsule 100 mg PO BID Qty: 30 0RF ibuprofen [IBU] 400 mg tablet 400 mg PO TID-QID PRN Discharge Instructions Additional Instructions: Surgery: Left reverse total shoulder arthroplasty (constrained liner) with biceps tenodesis Activity: Do not lift anything heavier than a coffee. You should keep your arm at your side in a neutral position at all times except for gentle range of motion exercises, physical therapy, and essential activities. You should use the sling whenever you are out of the house. You may have to adjust the abduct ion pillow or remove it for comfort. At home it is best to remove the sling and rest the arm on a pillow at your side or support the operative side with your other hand. A physical therapy prescription will be sent electronically to start in about 3 weeks. Standard Reverse TSA Protocol: Immediate AROM OK. Prescriptions: Aspirin 81 mg take 1 daily to prevent a blood clot for 7 days Naproxen 250 mg take 1-2 every 12 hours with a meal as needed for moderate pain Tramadol 50 mg take 1 every 8 hours as needed for severe pain You may use [id number] Tylenol (acetaminophen) as needed for mild pain. These pain medications may be taken all at once or in different combinations as needed. Also, recommend Colace (docusate) as a stool softener as surgery and pain medicine cause constipation. You may try [id number]-[id number]-[id number] diphenhydramine (Benadryl) 25-50 mg nightly as a sleep aid Dressings: Leave dressing in place until follow-up. Keep clean and dry at all times. No showers please. Follow-up: 10-[address] Odonnell You may take off the leg compression stockings this evening at home. You may also leave them on a few days longer if you have a history of leg swelling or edema. Please call the office during business hours with any questions or concerns. Let us know right away if you develop any redness, drainage, fevers, chest pain, or trouble breathing. Do not drink alcohol or drive for at least 24 hours after anesthesia. Discharge Orders Discharge Orders: Discharge Order (Routine); Ordered 05/25/23 Ordered By: Donald Minor DS: Diagnosis Discharge Diagnosis (1) Left rotator cuff tear arthropathy: Status: Acute
--- NOTE | 2023-05-25 07:09 | W.PM.OP ---
Date of service: 05/25/23 Time of Service: 07:30 Operative Note Operative Note DATE OF PROCEDURE: 05/25/23 PRE-OP DIAGNOSIS: Left: 1. Rotator cuff arthropathy 2. Long head of the biceps tendinopathy POST-OP DIAGNOSIS: same PROCEDURE: Left: 1. Reverse total shoulder arthroplasty, CPT # [address]164 2. Open biceps tenodesis, CPT # 15817 The commercial escrow assistant was medically required as this procedure involves retraction, protection of neurovascular structures, and manipulation of multiple instruments and implants at the same time, which cannot be done without a skilled commercial escrow assistant. SURGEON: Alexsander Odonnell RIG MANAGER: Donald Minor ANESTHESIA TYPE: Local By Surgeon, General LMA/ETT and Primary Nerve Block Refer to Anesthesia Record ESTIMATED BLOOD LOSS: 75 Patient was transported to: PACU Implants: [employer] modular glenoid system baseplate 24 mm [employer] modular glenoid system central post 20mm [employer] modular glenoid system peripheral locking screws 36 mm inferior, 20 mm superior, 16 mm posterior, 16 mm anterior [employer] modular glenoid system glenosphere 36 +4 mm lateralized [employer] humeral stem 135 degrees size 6 [employer] suture cup size 36 posterior offset [employer] spacer size 36 +6 mm [employer] humeral insert size 36 +3 mm Indications: Please see complete medical record for details. Findings: Largely deficient anterior superior and even posterior superior rotator cuff. Chronic bony changes about the greater tuberosity. Significant long head biceps tenosynovitis, partial tearing, and medial subluxation over the lesser tuberosity. Moderate grade glenohumeral cartilage loss. Significantly diminutive glenoid and soft bone proximal humerus. Procedure Description: In the operating room, general anesthesia was induced. The patient was positioned beachchair on the operating room table. All bony prominences were well-padded. Preoperative antibiotics were administered. The shoulder was prepped and draped in the usual sterile fashion for shoulder arthroplasty. The correct patient, procedure, and side of the procedure were all verified prior to incision. The deltopectoral approach was preinjected with local anesthetic containing epinephrine and taken to the anterior shoulder. Care was taken to bluntly dissect the interval between the deltoid and pectoralis major muscles and to identify the cephalic vein within its fat stripe. The the vein was mobilized laterally. Subdeltoid space and conjoined tendon were freed of adhesions. The long head of the biceps tendon was identified in a subluxated position medial to the lesser tuberosity in the subscapularis tear. The uppermost margin of the pectoralis major tendon was released from the proximal humerus. The long head of the biceps tendon was relocated to the bicipital groove and then tenodesed in situ using SutureTape in a ndvaso-zs-ufnse fashion securing it superior margin the pectoralis major tendon. The biceps tendon was amputated and followed proximally to identify the rotator interval. A subscapularis tenotomy was done of the remnant centrally to superiorly and a peel type release most inferiorly taking care to work on bone. The supraspinatus and infraspinatus were deficient and bursitis was resected from the superior and posterior superior space. Appropriate coagulation was achieved especially interiorly. The anatomic neck was cut using an oscillating saw with the humeral head bone brought back table in case there was a need for future bone grafting. The proximal humeral protection plate was used to provisionally confirm suture cup and glenosphere size. The proximal humerus was delivered from the wound and maintained in external rotation. Reamers were started appropriately posterior to the bicipital groove taking care to maintain in line approach with the humeral canal. Sequential reaming was done from size 5 up to size 6. Next, the broaches were sequentially used to open the proximal humerus starting with a size 5 and going up to size 6 and sunk to the appropriate depth while maintaining approximately 20 degrees retroversion. There was good metaphyseal fit and rotational control of the proximal humerus with this size. The posterior offset guide was used to ream for the suture cup, which was somewhat oversized given the diminutive proximal humerus bone, but the bone removed did not have any rotator cuff or really any other soft tissue attachments. The humeral trial cup was connected. Attention was then turned to the glenoid and retractors were placed and a circumferential release performed using the long head of the biceps remnant to remove soft tissue about the glenoid rim. Care was taken inferiorly to work on bone only between 5 and 7:00 o'clock and bluntly elevate tissues inferiorly. The VIP guide was placed on the glenoid and used to confirm placement and trajectory of the central guidepin, which was inserted through the baseplate guide placed by hand to account for the diminutive glenoid stature and need for perfect central placement. The guidepin was inserted and advanced just through the far cortex ensuring adequate central fixation length, which was about 20 mm. Depth gauge was used to confirm length. The glenosphere sizer was used to confirm positioning and glenosphere size. The backside of the baseplate reamer and underside of glenosphere reamers were then used. There was appropriate concentric reaming and preparation while removing as little as bone as possible of the glenoid surface. The options between screw and post were considered, the 10 mm drill for the smallest screw was done, there was good bone more deeply, the 15 mm drill was then used for post, and again there was still adequate bone more deeply so the 20 mm drill was used and was appropriate with possible small perforation, but not obviously, but probably necessary to improve fixation and growth given the lack of available bone. The baseplate was impacted and fully compressed onto the glenoid surface. The locking guide was then used to drill and place appropriately lengthed inferior, superior, anterior, and posterior screws. The ejiu-zuk-mhvizfqva reamer was used to confirm adequate peripheral reaming. The glenosphere was applied with the wire inserter and then impacted to engage the Merida taper. It was then locked with appropriate countersinking of the setscrew. The glenosphere was inspected and found to have good to slightly oversized fit, appropriate positioning, and no soft tissue or bony impingement. Attention was then turned back to proximal humerus. Trialing was commenced with +3 mm liner. The shoulder was reduced and taken through range of motion. Trial components were built up to +6 mm spacer and +3mm liner to achieve good stability and appropriate tension on the deltoid and conjoined tension. The trial components were removed from the proximal humerus. The wound was copiously irrigated with normal saline. The the proximal humeral stem and suture cup were assembled and brought over the proximal humerus. A small amount of vancomycin powder was distributed in the proximal humerus. The humeral component and suture cup were impacted into place. The final spacer and liner then connected, constrained liner chosen due lack of soft tissue constraints, and range of motion, stability, and tension confirmed. The shoulder was copiously irrigated with Irrisept and normal saline. Vancomycin powder was distributed deeply about the shoulder and through subcutaneous tissues. The deltopectoral interval was approximated baring the cephalic vein using 2-0 Monocryl. Subcutaneous tissue was irrigated then closed using 2-0 Monocryl in a buried interrupted fashion. Skin was closed using 3-0 Monocryl in a buried subcuticular fashion. Skin glue was applied to the incision. A silver impregnated bandage was placed over the incision. The extremity was placed into a shoulder immobilizer. The patient awoke from anesthesia without complication and was taken to the recovery room in stable condition.
[2023-05-25] MEDS: ceFAZolin 3,000 MG in Normal Saline 100 ML 200 MG IVPB (07:54)
--- NOTE | 2023-05-25 08:21 | W.ANESNERVE ---
Nerve Block Single Injection Procedure Date and Time Date Performed: 05/25/23 Procedure Start: 07:21 Location Where Procedure Performed Procedure Location: Day Surgery Unit Reason Performed: Postoperative Analgesia Requesting Provider: Alexsander Odonnell Timeout Performed Timeout Performed: Yes Monitoring Used ECG, Blood Pressure and SpO2 Sterility Sterility: Hand Hygiene, Surgical Cap, Surgical Mask, Sterile Gloves and Chlorhexidine Sedation Given During Procedure Sedation Given (Indicate Dose Given): Versed IV Dose:: 2mg Patient Mental Status Patient Mental Status: Sedate with meaningful communication Nerve Block 1st Nerve Block: Laterality: Left Block Type: Superficial Cervical Plexus Ultrasound Image Saved?: Yes Needle / Catheter Used: 100mm SonoPlex II Local Anesthetic Bolus (Indicate Dose Given): Lidocaine used for local infiltration of skin, Injected in 3-5ml increments after negative blood aspiration, Bupivacaine 0.5% Dose:: 2.5mL and Exparel Dose:: 2.5mL Additives (Indicate Dose Given): None Ultrasound: Sterile probe cover and gel used Nerve Stimulator: Supplement to Ultrasound use Paresthesia: None Procedure Tolerated: No Complications and Patient tolerated well Procedure Outcome: Successful Performed By: Jaylon De Los Santos 2nd Nerve Block: Laterality: Left Block Type: Interscalene Ultrasound Image Saved?: Yes Needle / Catheter Used: 100mm SonoPlex II Local Anesthetic Bolus (Indicate Dose Given): Lidocaine used for local infiltration of skin, Injected in 3-5ml increments after negative blood aspiration, Bupivacaine 0.5% Dose:: 5mL and Exparel Dose:: 5mL Additives (Indicate Dose Given): None Ultrasound: Sterile probe cover and gel used Nerve Stimulator: Supplement to Ultrasound use Paresthesia: None Procedure Tolerated: No Complications and Patient tolerated well Procedure Outcome: Successful Procedure Comment: 5 ml of exparel/bupivacaine mixture inadvertantly wasted by DSU RN on initial injection. 15 ml given, 5 ml wasted. Performed By: Brenda Stevens Supervised By: Jaylon De Los Santos
[2023-05-25] MEDS: EPINEPHrine 1 MG/ML AMP pres-free (08:24)
[2023-05-25] MEDS: Bupivacaine 0.25% Pres-Free 30 ML VIAL (08:24)
--- NOTE | 2023-05-25 11:04 | W.ANESPOSTOP ---
Postoperative Evaluation Date, Time and Location Date Performed: 05/25/23 Time Performed: 11:04 Patient Location: PACU Vital Signs Most Recent Imported Vital Signs: Temp Pulse Resp BP Pulse Ox 36.4 C L 62 16 145/58 H 96 05/25/23 11:28 05/25/23 11:28 05/25/23 11:28 05/25/23 11:28 05/25/23 11:28 Temp Pulse Resp BP Pulse Ox 37.0 C 66 16 168/80 H 95 05/25/23 07:35 05/25/23 07:35 05/25/23 07:35 05/25/23 07:35 05/25/23 07:35 Most Recent Vital Signs Temp Pulse Resp BP Pulse Ox 37.0 C 66 16 168/80 H 95 05/25/23 07:35 05/25/23 07:35 05/25/23 07:35 05/25/23 07:35 05/25/23 07:35 Pain Score Most Recent Pain Score: Most Recent Pain Score Pain Level 0 05/25/23 07:35 Assessment Mental Status: Awake (Alert & Oriented to Patient Baseline) Airway and Respiratory Function: Patent airway with normal (patient baseline) respiratory exam Cardiovascular Function: Hemodynamically Stable Hydration Status: Adequately Hydrated Nausea & Vomiting: No Nausea or Vomiting Pain: Pt. Denies Any Pain Peripheral Nerve Block: Regional nerve block not resolved at time of post operative discharge
--- NOTE | 2023-05-25 11:20 | DI.RAD_ITS ---
Exam(s) XR SHOULDER LT COMPLETE 2+V EXAM: XR SHOULDER LT COMPLETE 2+V CLINICAL HISTORY: Reverse TSA instability. TECHNIQUE: 2D digital imaging was performed. Three images were obtained. Grashey and Y views were o btained. COMPARISON: CR XR SHOULDER LT COMPLETE 2+V from 12/22/[address] UPPER EXTREMITY LT WO from 03/02/2023 FINDINGS: BONES: There are post operative changes of a left total reverse shoulder replacement present. No fra cture or dislocation. JOINTS: The orthopedic hardware is in good position. There are mild degenerative changes at the acro mioclavicular joint. SOFT TISSUE: Normal. IMPRESSION: Status post left total reverse shoulder replacement. DATA REPOSITORY: RADIATION DOSE DELIVERED:
[2023-05-25] MEDS: ceFAZolin 1 GM/50 ML BAG IVPB (12:33)
== END 2023-05-25 13:40 | disposition home or self-care (01) ==
PROVIDERS: PCP Internal Medicine; Visit Provider Student in an Organized Health Care Education/Training Program
PROC: (CPT 23472; principal; 2023-05-25 07:30)
DX: M75.102 Unspecified rotator cuff tear or rupture of left shoulder, not specified as traumatic (principal); M19.012 Primary osteoarthritis, left shoulder; K75.81 Nonalcoholic steatohepatitis (NASH); I10 Essential (primary) hypertension; E78.5 Hyperlipidemia, unspecified; R73.03 Prediabetes
CPT/HCPCS: C1713; 23472; 76942; 73030; C9290; J0131; J0171; J0665; J0690; J1100; J1885; J2001; J2250; J2371; J2405; J2704; J3370; J3475

== ENCOUNTER 2023-06-07 11:32 | Outpatient (CLI) | payer MEDICARE, SELFPAY ==
--- NOTE | 2023-06-07 10:15 | DI.RAD_ITS ---
Exam(s) XR SHOULDER LT COMPLETE 2+V EXAM: XR SHOULDER LT COMPLETE 2+V INDICATION: F/U LEFT RTSA. COMPARISON: No exams were available for comparison TECHNIQUE: 2D digital imaging was performed. Two views. FINDINGS: There has been no change in the alignment of the shoulder prosthesis. There are no abnormal surround ing bony lucencies. DATA REPOSITORY: RADIATION DOSE DELIVERED:
== END 2023-06-07 11:33 | disposition home or self-care (01) ==
LOC: DIORS 11:33
PROVIDERS: PCP Internal Medicine; Visit Provider Student in an Organized Health Care Education/Training Program
DX: M75.102 Unspecified rotator cuff tear or rupture of left shoulder, not specified as traumatic (principal); M12.812 Other specific arthropathies, not elsewhere classified, left shoulder; Z47.89 Encounter for other orthopedic aftercare
CPT/HCPCS: 73030

== ENCOUNTER → 2023-07-26 09:42 | Outpatient (BNVA) | payer MEDICARE, SELFPAY | PROVIDERS: PCP Internal Medicine; Referring Provider Internal Medicine; Visit Provider Student in an Organized Health Care Education/Training Program | DX: Z47.1 Aftercare following joint replacement surgery (principal); Z96.612 Presence of left artificial shoulder joint ==

== ENCOUNTER → 2023-09-27 10:15 | Outpatient (BNVA) | payer MEDICARE, SELFPAY | PROVIDERS: PCP Internal Medicine; Referring Provider Internal Medicine; Visit Provider Student in an Organized Health Care Education/Training Program | DX: Z47.1 Aftercare following joint replacement surgery (principal); Z96.612 Presence of left artificial shoulder joint | CPT/HCPCS: 99213 ==

== ENCOUNTER 2024-02-01 15:47 | Outpatient (CLI) | payer MEDICARE, SELFPAY ==
--- NOTE | 2024-02-01 13:45 | DI.RAD_ITS ---
Exam(s) XR SHOULDER LT COMPLETE 2+V EXAM: XR SHOULDER LT COMPLETE 2+V CLINICAL HISTORY: LEFT SHOULDER PAIN S/P FALL. TECHNIQUE: 2D digital imaging was performed. Three images were obtained. Grashey and Y views were o btained. COMPARISON: CR XR SHOULDER LT COMPLETE 2+V from 06/07/2023 FINDINGS: BONES: There are stable post operative changes of a left total reverse shoulder arthroplasty present. No fracture or dislocation. JOINTS: The orthopedic hardware is in good position. No evidence of hardware loosening. There are d egenerative changes seen at the acromioclavicular joint. SOFT TISSUE: Normal. IMPRESSION: 1. Stable left total reverse shoulder arthroplasty. 2. No acute fracture. DATA REPOSITORY: RADIATION DOSE DELIVERED:
== END 2024-02-01 15:48 | disposition home or self-care (01) ==
LOC: DIORS 15:47
PROVIDERS: PCP Internal Medicine; Visit Provider Student in an Organized Health Care Education/Training Program
DX: M75.102 Unspecified rotator cuff tear or rupture of left shoulder, not specified as traumatic (principal); M12.812 Other specific arthropathies, not elsewhere classified, left shoulder; W01.0XXA Fall on same level from slipping, tripping and stumbling without subsequent striking against object, initial encounter; Z96.612 Presence of left artificial shoulder joint
CPT/HCPCS: 99213; 73030

== ENCOUNTER 2024-03-12 16:04 | Outpatient (CLI) | payer MEDICARE, SELFPAY ==
--- NOTE | 2024-03-12 09:05 | DI.RAD_ITS ---
Exam(s) XR HIP RT AP LAT ONLY EXAM: XR HIP RT AP LAT ONLY INDICATION: ANNUAL F/U R JEREMIAS. COMPARISON: CR XR HIP RT COMPLETE AP PELVIS from 03/25/2023 TECHNIQUE: 2D digital imaging was performed. Two views. FINDINGS: Stable alignment of right hip prosthesis. No abnormal surrounding lucencies. DATA REPOSITORY: RADIATION DOSE DELIVERED:
== END 2024-03-12 16:05 | disposition home or self-care (01) ==
LOC: DIORS 16:04
PROVIDERS: PCP Internal Medicine; Visit Provider Student in an Organized Health Care Education/Training Program
DX: Z47.1 Aftercare following joint replacement surgery (principal); Z96.641 Presence of right artificial hip joint
CPT/HCPCS: 99213; 73502

== ENCOUNTER 2024-05-23 15:42 | Outpatient (CLI) | payer MEDICARE, SELFPAY ==
--- NOTE | 2024-05-23 09:45 | DI.RAD_ITS ---
Exam(s) XR SHOULDER LT COMPLETE 2+V EXAM: XR SHOULDER LT COMPLETE 2+V CLINICAL HISTORY: F/U LEFT RTSA. TECHNIQUE: 2D digital imaging was performed. COMPARISON: CR XR SHOULDER LT COMPLETE 2+V from 02/01/2024 FINDINGS: Two views Stable position alignment of the components of the reverse prosthesis. No fracture or loosening evid ent. IMPRESSION: Stable satisfactory appearance DATA REPOSITORY: RADIATION DOSE DELIVERED:
--- NOTE | 2024-05-23 10:00 | DI.RAD_ITS ---
Exam(s) XR LUMBAR SPINE AP, LAT EXAM: XR LUMBAR SPINE AP, LAT CLINICAL HISTORY: LOW BACK PAIN. TECHNIQUE: 2D digital imaging was performed. COMPARISON: No exams were available for comparison FINDINGS: Two views Standing AP and lateral views of the lumbosacral spine reveal slight loss of height of superior endpl ate of L1 probably chronic. There is advanced disc space narrowing at L4-5 and L5-S1 levels and ther e is degenerative anterolisthesis of L4 upon L5 with approximately 9 mm anterior slippage of L4 upon L5 due to facet arthropathy. No osseous lesions. Right hip prosthesis noted. IMPRESSION: As above. DATA REPOSITORY: RADIATION DOSE DELIVERED:
--- NOTE | 2024-05-23 10:00 | DI.RAD_ITS ---
Exam(s) XR HIP LT COMPLETE AP PELVIS EXAM: XR HIP LT COMPLETE AP PELVIS CLINICAL HISTORY: LEFT HIP PAIN. TECHNIQUE: 2D digital imaging was performed. COMPARISON: CR XR HIP RT AP LAT ONLY from 03/12/2024 FINDINGS: 3 views No evidence of pelvic nor hip fractures. A right hip prosthesis is noted. Respect of the opposite-l eft hip, no fracture nor dislocation. There is only minimal joint space narrowing. No osteophytes s een on the frog-lateral view. Bone density is age-appropriate. No osseous lesions. SI joints appea r unremarkable. There is degenerative disc disease in the lumbar spine noted IMPRESSION: Minimal if any significant degenerative changes in left hip. Right hip prosthesis. DATA REPOSITORY: RADIATION DOSE DELIVERED:
== END 2024-05-23 15:43 | disposition home or self-care (01) ==
LOC: DIORS 15:43
PROVIDERS: PCP Internal Medicine; Referring Provider Internal Medicine; Visit Provider Student in an Organized Health Care Education/Training Program
DX: M70.62 Trochanteric bursitis, left hip; M53.86 Other specified dorsopathies, lumbar region; M75.102 Unspecified rotator cuff tear or rupture of left shoulder, not specified as traumatic; M12.812 Other specific arthropathies, not elsewhere classified, left shoulder
CPT/HCPCS: 99214; 72100; 73030; 73502

== ENCOUNTER 2024-06-28 11:53 | Outpatient (CLI) | payer MEDICARE, SELFPAY ==
[2024-06-28 12:54] VITALS: BP 134/69; PULSE 70; RESP 18; TEMP 36.7; O2SAT 94
--- NOTE | 2024-06-28 12:57 | PDOC.PAIN_ITS ---
Date of service: 06/28/24 Time of Service: 13:32 Pain Managment Procedure Note Procedure Note Procedure Note: Lumbar Interlaminar Epidural Steroid Injection ? Location: [L5-S1] ? Pre-procedure Diagnosis: [M54.16- Radiculopathy, LUMBAR region] ? Post-procedure Diagnosis:? The same as above ? Sedation:? [2mg of intravenous midazolam was administered.? An independent trained observer monitored the patient for the duration of the procedure.]? [None] ? Medication: Depo-Medrol 80 mg, Omnipaque 1 mL ? Estimated blood loss:? less than 2 cc ? Surgeon:? Ambrocio Babb MD COMMENT: Patient has pain radiating into her left lower extremity to her ankle. 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 She does have significant facet arthropathy at that level but no real mechanical low back pain on Kemps maneuver. ? Procedure Detail:? The procedure and potential risks were explained to the patient and informed written consent was obtained. The patient was escorted to the procedure room and placed in the prone position. Pillows were utilized for proper positioning and comfort. Time out was performed in the procedure room with nursing staff confirming the patient's identity, procedure to be performed, allergies, and any blood thinning or anti-platelet medications.? The patient's neck and upper back was prepped with ChloraPrep and draped in a sterile fashion. Sterile technique was maintained throughout the procedure.? Sterile gloves were used, a face mask was worn, and new single dose vials of all medications were used with the top being swabbed with alcohol and given time to dry prior to withdrawal of medication. Lidocane 1% was used to anesthetize the skin.Using a 25-gauge 1.5 inch needle, 1% lidocaine was instilled into the superficial soft tissue overlying the targeted area to provide local anesthesia. With fluoroscopic guidance, a 17 -gauge Tuohy needle was advanced toward the interlaminar space of [L5-S1]. The needle was then advance through the ligament um flavum and into the posterior epidural space using the loss of resistance technique. Correct needle placement was confirmed through review of the AP and contralateral oblique fluoroscopic views. A 19-gauge arrow catheter was threaded cephalad and to the Left Following negative aspiration, one cc of Omnipaque 240 contrast was injected which confirmed good flow throughout the epidural space and no evidence of vascular flow or flow into adjacent compartments. Next, following negative aspiration, 1 cc's of normal saline and 80mg of Depo-Medrol was injected. The needle was gently removed. The patient tolerated the procedure well and was transported to the recovery area for observation and discharge instructions. Permanent images saved and recorded. PAIN PRE-PROCEDURE 10/18 POST-PROCEDURE 07/19 Plan:? Follow up prn. COMMENT: Repeat if needed or if not effective would proceed with a left L4 transforaminal steroid injection with Depo-Medrol Coding Conscious Sedation used for procedure: No CPT Codes: Inj Spine L/S w/Imaging - [id number] ([id number] ~G) Additional Codes: Date of Service ([id number]) Date of service: 06/28/24
[2024-06-28 13:19] VITALS: PULSE 91; O2SAT 94
[2024-06-28 13:24] VITALS: PULSE 90; O2SAT 96
[2024-06-28] MEDS: methylPREDNISolone ACETATE 40 MG/ML VIAL IJ (13:33)
[2024-06-28] MEDS: Omnipaque 240 MG/ML 50 ML BTL IJ (13:33)
[2024-06-28] MEDS: Epidural Tray 1 EACH MC (13:34)
--- NOTE | 2024-06-28 13:35 | DI.RAD_ITS ---
Exam(s) XR PAIN CLINIC LUMBAR SP 2V EXAM: XR PAIN CLINIC LUMBAR SP 2V CLINICAL HISTORY: DX: Lumbar Radiculopathy. TECHNIQUE: Fluoroscopy was provided for the referring physician for guidance with performing pain cl inic injection procedure. COMPARISON: No exams were available for comparison FINDINGS: Please see procedure note for details. Fluoro time: 19.8 seconds RADIATION DOSE DELIVERED: Ka,r=7.2 mGy
== END 2024-06-28 11:54 | disposition home or self-care (01) ==
LOC: PC 11:54
PROVIDERS: PCP Internal Medicine; Visit Provider Anesthesiology Pain Medicine
DX: M54.50 Low back pain, unspecified (principal); M54.16 Radiculopathy, lumbar region
CPT/HCPCS: 62323; 72100; J1010; Q9967